=== PATIENT | female | born 1970 | race Caucasian/White ===

== ENCOUNTER 2016-09-30 21:47 | Emergency (ER) | payer MEDICAID, SELFPAY ==
[~2016-09-30] VITALS: Ht 157.5 cm; Wt 90.7 kg
[2016-09-30 21:48] VITALS: BP 145/85
[2016-09-30] MEDS ORDERED: ATOR40TA PO (21:56)
[2016-09-30] MEDS ORDERED: ZOLO50TA PO (21:56)
[2016-09-30] MEDS ORDERED: CLON1TAB PO (21:56)
[2016-09-30] MEDS ORDERED: OMEP40CA2 PO (21:56)
[2016-09-30] MEDS ORDERED: LIDO2JELLY TOP (21:56)
[2016-09-30] MEDS ORDERED: ONDANSETRON 4MG/2ML VIAL (J2405) IV ONE (23:30)
[2016-09-30] MEDS ORDERED: NS 1,000 ML IV ONE (23:30)
[2016-10-01] MEDS: MORPHINE 2 MG/ML 1ML SYRINGE IV PRN ×4 (00:25→01:20)
--- NOTE | 2016-10-01 00:40 | REPUSA ---
CLINICAL HISTORY: Pelvic pain. TECHNIQUE: Realtime sonographic images were obtained in multiple projections via TV approach. COMMENTS: The uterus is anteverted measuring 8.6x4.4x5.2 cm. Heterogeneous uterus with multiple fibroids measur ing to 1.9 and 1 cm respectively. The endometrial echo pattern is within normal limits measuring 4.0 mm. There is no evidence of free fluid within the pelvic cul-de-sac. The right ovary measures 2.8x2.7x2.3 cm and the left ovary measures 1.8x1.6x1.3 cm . Both ovaries are free of solid or cystic mass. Right ovarian dominant follicle measuring 1.5 cm. There is no evidence for abnormal vascularity. IMPRESSION: Heterogeneous uterine echotexture. Multiple uterine fibroids. Right ovarian dominant follicle Thank you for your kind referral of this patient.
[2016-10-01 00:49] LABS: BASO % 0.5 % (0.0-1.0); EOS # 0.2 K/mm3 (0.0-0.50); EOS % 2.5 % (0.0-3.0); LARGE UNSTAINED CELL # 0.1 K/mm3 (0.0-0.4); LARGE UNSTAINED CELL % 1.4 % (0.0-4.0); LYMPH # 3.2 K/mm3 (1.5-4.5); LYMPH % 32.5 % (24.0-44.0); MEAN CORPUSCULAR HEMOGLOBIN 29.9 pg (27.0-33.0); MEAN CORPUSCULAR HGB CONC 33.3 g/dl (32.0-36.5); MEAN CORPUSCULAR VOLUME 89.8 fl (80.0-96.0); MONO # 0.4 K/mm3 (0.0-0.8); MONO % 4.4 % (0.0-5.0); NEUTROPHILS # 5.6 K/mm3 (1.8-7.7); NEUTROPHILS % 58.7 % (36.0-66.0); PLATELET COUNT, AUTOMATED 233 k/mm3 (150-450); RED CELL DISTRIBUTION WIDTH 12.5 % (11.5-14.5); WHITE BLOOD COUNT 9.6 K/mm3 (4.0-10.0)
[2016-10-01] MEDS ORDERED: MORPHINE 4 MG/ML 1ML SYRINGE IV ONE (02:15)
[2016-10-01 02:20] LABS: ALBUMIN 3.8 GM/DL (3.2-5.2); ALBUMIN/GLOBULIN RATIO 1.23 (1.00-1.93); ALKALINE PHOSPHATASE 83 U/L (45-117); ALT/SGPT 25 U/L (12-78); ANION GAP 7 MEQ/L (8-16); AST/SGOT 15 U/L (15-37); BILIRUBIN,DIRECT 0.1 MG/DL (0.0-0.2); BILIRUBIN,TOTAL 0.5 MG/DL (0.2-1.0); BLOOD UREA NITROGEN 7 MG/DL (7-18); CALCIUM LEVEL 8.4 MG/DL (8.5-10.1); CARBON DIOXIDE LEVEL 31 MEQ/L (21-32); CHLORIDE LEVEL 104 MEQ/L (98-107); CREATININE FOR GFR 0.66 MG/DL (0.55-1.02); GLOMERULAR FILTRATION RATE > 60.0 (>58); GLUCOSE, FASTING 104 MG/DL (70-105); POTASSIUM SERUM 3.7 MEQ/L (3.5-5.1); SODIUM LEVEL 142 MEQ/L (136-145); TOTAL PROTEIN 6.9 GM/DL (6.4-8.2)
[2016-10-01] MEDS ORDERED: ISOVUE-370 76% 100ML VIAL (Q9967) As Ordered ONE (02:23)
--- NOTE | 2016-10-01 02:55 | REP ---
Clinical: Right lower quadrant pain. Technique: Axial contrast enhanced images from the lung bases to the pubic symphysis using 100 ml Isovue 370 intravenous contrast material with coronal and sagittal re-formations. Findings: Lung bases are clear. Visualized heart and pericardium normal. Liver, spleen, pancreas, bilateral adrenal glands and kidneys are normal. The patient is status post cholecystectomy. A nonobstructing 1 mm distal ureteral calculus versus forming phlebolith cannot definitively be excluded and should be correlated with urinalysis (image [id number]). The enteric system including stomach, small, and large bowel is without obstruction or acute inflammatory process. A normal terminal ileum and appendix are identified in the right lower quadrant. Scattered sigmoid diverticula noted without acute diverticulitis. Pelvis demonstrates normal uterus and adnexa. No pelvic fluid or ascites. No free air. No intraperitoneal or retroperitoneal adenopathy. Vasculature is normal. Small 7 mm fat containing periumbilical hernia identified. Surrounding musculoskeletal structures are intact and without focal osseous abnormality. Impression: 1. Normal terminal ileum and appendix. 2. No free fluid. 3. Cannot exclude a nonobstructing 1 mm calculus in the distal right ureter and correlation with urinalysis may be warranted. However, there is no associated perinephric stranding or hydroureteronephrosis and finding may represent small forming phlebolith. 4. No further acute intra-abdominal or pelvic pathology appreciated. Signed by Steve Chacon MD 10/01/2016 02:45 A
[2016-10-01] MEDS ORDERED: PERC5TAB6 PO (03:58)
[2016-10-01] MEDS ORDERED: HYDROmorphone HCL 1 MG/ML SYRINGE (J1170) IV ONE (04:00)
[2016-10-01] MEDS ORDERED: OXYCODONE/APAP 5MG/325MG(BULK FOR ED) 1 TABLET PO ONE (04:00)
== END 2016-10-01 05:06 | disposition home or self-care (01) ==
LOC: M ED 10-01 00:12
DX: N20.1 Calculus of ureter (principal); E28.2 Polycystic ovarian syndrome; G35 Multiple sclerosis; F41.9 Anxiety disorder, unspecified; F33.9 Major depressive disorder, recurrent, unspecified; Z79.899 Other long term (current) drug therapy; Z88.5 Allergy status to narcotic agent; Z88.8 Allergy status to other drugs, medicaments and biological substances; F17.210 Nicotine dependence, cigarettes, uncomplicated
CPT/HCPCS: 36415; 74177; 76830; 76856; 80048; 80076; 81001; 81025; 83605; 83690; 85025; 87210; 87491; 87591; 93976; 96374; 96375; 96376; 99283; J1170; J2405; Q9967